=== PATIENT | female | born 1960 | race Caucasian/White ===

== ENCOUNTER 2019-01-19 21:00 | Emergency (ER) | payer MEDICAID ==
[~2019-01-19] VITALS: Ht 160 cm; Wt 52.2 kg
[2019-01-19] MEDS ORDERED: Haloperidol 5mg/ml Inj IM ONE (21:15)
--- NOTE | 2019-01-19 21:30 | Emergency Room Report ---
History of Present Illness General Chief Complaint: Behavioral Complaint Source: Patient Present Illness HPI This is an approximately 67-year-old female who presents as a Ruth Maloney with chief complaint of agitation. She is a homeless person who lives in a nearby intersection. She is known to nearby business. She usually lives on the street with her shopping cart. She presents with more agitation. More yelling and walking into the street. Unknown trauma. Unknown drug or alcohol. She has no ID on her to give her name. Allergies: Coded Allergies: UNABLE TO ASSESS (Unverified , 01/19/19) Patient History Past Medical History: see triage record, old chart reviewed, unable to obtain, psych hx Past Surgical History: unable to obtain Family History: unable to obtain Social History: tobacco use Last Menstrual Period: n/a Immunizations: other Reviewed Nursing Documentation: PMH: Agreed; PSxH: Agreed Nursing Documentation-PMH Past Medical History Deferred: Pt Cognitively Impaired Review of Systems All Other Systems: limited - secondary to condition Physical Exam Vital Signs Date Time Temp Pulse Resp B/P (MAP) Pulse Ox O2 Delivery O2 Flow Rate FiO2 01/19/19 20:57 98.2 88 18 129/79 (96) 98 Room Air Sp02 EP Interpretation: reviewed, normal General Appearance: alert/responsive, no apparent distress, non-toxic, other - dishelved Head: normocephalic, atraumatic Eyes: PERRL, EOMI ENT: oropharynx normal Neck: supple/symm/no masses Respiratory: effort normal, no rhonchi, no wheezing Cardiovascular: no murmur, gallop, rub Gastrointestinal: non-tender, no mass, non-distended, no rebound/guarding, normal bowel sounds Neurologic: other - grossly normal Psychiatric: other - agitated Skin: no rash, normal palpation Medical Decision Making Diagnostic Impression: Primary Impression: Alcohol intoxication Qualified Codes: F10.920 - Alcohol use, unspecified with intoxication, uncomplicated ER Course Patient with alcohol intoxication. She slept through the night. Now awake and able to give her name, date of and show security number. Says she is not suicidal homicidal. No drug use. Does not want to go to [facility]. Will discharge. Last Vital Signs Date Time Temp Pulse Resp B/P (MAP) Pulse Ox O2 Delivery O2 Flow Rate FiO2 01/19/19 20:57 98.2 88 18 129/79 (96) 98 Room Air Status: improved Disposition: HOME, SELF-CARE Condition: Stable Additional Instructions: Abstain from alcohol. Follow-up with your doctor in 7 days. Follow-up with mental health in 7 days. Return if worse. Horace Forrester MD Jan 19, 2019 21:30
--- NOTE | 2019-01-19 21:55 | NUR ---
ED Nurse Note: Patient was BIBA from the street accompany by [employer], patient was found running around naked. She was picked up from [address] [place] [address]. Patient presented bizare, resstless, was screaming out loud. AAO x2, VSS at this time, patient presented with scratches on her both wrists.
--- NOTE | 2019-01-19 22:05 | NUR ---
ED Nurse Note: Placed patient's name manually in the pixes, override Haldol 5 mg.
[2019-01-19 22:06] VITALS: BP 129/79
[2019-01-19 22:09] LABS: BASOPHILS % (AUTO) 1.2 % (0.0-2.0); EOSINOPHILS % (AUTO) 4.3 % (0.0-3.0); HEMATOCRIT 37.6 % (37.0-47.0); LYMPHOCYTES % (AUTO) 43.5 % (20.0-45.0); MEAN CORPUSCULAR VOLUME 80 FL (80-99); MONOCYTES % (AUTO) 5.8 % (1.0-10.0); NEUTROPHILS % (AUTO) 45.2 % (45.0-75.0); PLATELET COUNT 282 K/UL (150-450); RED CELL DISTRIBUTION WIDTH 13.4 % (11.6-14.8)
[2019-01-19 22:31] LABS: ANION GAP 12 mmol/L (5-15); BLOOD UREA NITROGEN 9 mg/dL (7-18); CALCIUM 8.8 MG/DL (8.5-10.1); CARBON DIOXIDE 24 MMOL/L (21-32); CHLORIDE 108 MMOL/L (98-107); CREATININE 0.5 MG/DL (0.55-1.30); POTASSIUM 3.2 MMOL/L (3.5-5.1); SODIUM 144 MMOL/L (136-145)
--- NOTE | 2019-01-19 22:36 | NUR ---
ED Nurse Note: urine collected sent down
[2019-01-19 23:39] LABS: APPEARANCE,URINE CLEAR; BILIRUBIN, URINE NEGATIVE (NEGATIVE); COLOR,URINE PALE YELLOW; GLUCOSE, URINE (UA) NEGATIVE (NEGATIVE); KETONES,URINE NEGATIVE (NEGATIVE); NITRITE,URINE NEGATIVE (NEGATIVE); PH,URINE 6 (4.5-8.0); PROTEIN,URINE NEGATIVE (NEGATIVE); UROBILINOGEN,URINE NORMAL MG/DL (0.0-1.0)
[2019-01-19 23:48] LABS: LEUKOCYTE ESTERASE ,URINE 1+ (NEGATIVE)
[2019-01-20 00:05] VITALS: BP 135/76
[2019-01-20 03:05] VITALS: BP 130/75
[2019-01-20 05:31] VITALS: BP 130/75
--- NOTE | 2019-01-20 05:33 | NUR ---
ER DISCHARGE NOTE: Patient is cleared to be discharged per ERMD, pt is aox4, on room air, with stable vital signs. pt was given dc and prescription instructions, pt was able to verbalize understanding, pt id band and iv site removed without complications. pt is able to ambulate with steady gait. pt took all belongings.
== END 2019-01-20 05:34 | disposition home or self-care (01) ==
LOC: EDBD 21:00 → EMR 21:30
DX: F10.920 Alcohol use, unspecified with intoxication, uncomplicated (principal); Z59.0 Homelessness; F17.200 Nicotine dependence, unspecified, uncomplicated
CPT/HCPCS: 36415; 80048; 80307; 80329; 81001; 85025; 96360; 96372; 99284